=== PATIENT | female | born 1970 | race Caucasian/White ===

== ENCOUNTER → 2020-09-13 14:48 | Outpatient (BNVA) | payer OTHER, SELFPAY | PROVIDERS: PCP Pediatrics; Visit Provider Hospitalist ==

== ENCOUNTER 2020-11-10 13:55 | Outpatient (REF) | payer OTHER, SELFPAY ==
--- NOTE | 2020-11-10 15:02 | PFT_ITS ---
FLOWS: FEV1 117% of predicted at 3.35 L. FVC 107% of predicted at 3.82 L. FEV1 to FVC ratio of 0.88. No bronchodilator response. LUNG VOLUMES: Total lung capacity 109% of predicted at 5.54 L. Residual volume 97% of predicted at 1.71 L. Slow vital capacity 116% of predicted at 3.83 L. Expiratory reserve volume 129% of predicted at 1.38 L. Diffusion capacity is normal. IMPRESSION: No obstructive or restrictive ventilatory defect. No bronchodilator response. Essentially normal pulmonary function test. Saeid St MD AP/MODL / [id number]
== END 2020-11-10 13:56 | disposition home or self-care (01) ==
LOC: HO.RESP 13:55
PROVIDERS: PCP Pediatrics; Visit Provider Hospitalist
DX: R06.00 Dyspnea, unspecified (principal)
CPT/HCPCS: 94060; 94727; 94729

== ENCOUNTER → 2020-12-14 13:23 | Outpatient (BNVA) | payer OTHER, SELFPAY | PROVIDERS: PCP Pediatrics; Visit Provider Hospitalist ==

== ENCOUNTER 2025-02-20 10:32 | Outpatient (AMB) | payer OTHER, SELFPAY ==
--- NOTE | 2025-02-20 11:08 | MHC.OFFVIS ---
Vital Signs 02/20/25 11:09 Height 5 ft 3 in Weight 125 lb BMI 22.1 BP 110/72 Blood Pressure Location Lt brachial Position Sitting Respiration 16 Pulse 84 Pulse Source Pulse Oximeter Pulse Oximetry (%) 97 Oxygen Delivery Method Room Air Intake Visit Reasons: Low back pain Lead Military Analyst Required: No Allergies amoxicillin (From Augmentin) Allergy (Severe, Verified 02/20/25 11:11) Swelling clavulanic acid (From Augmentin) Allergy (Severe, Verified 02/20/25 11:11) Swelling Medication List - Last Reconciled 02/20/25 by Miri Chun LPN atorvastatin (Lipitor) 10 mg PO BEDTIME calcium carb, citrate, malate mg PO magnesium 250 mg PO DAILY multivitamin 1 tab PO DAILY omeprazole 40 mg PO DAILY turmeric mg PO vibegron (Gemtesa) 75 mg PO DAILY HPI HPI Low back pain: Details: History of Present Illness The patient is a 54-year-old female presenting with chronic low back pain. The onset of her symptoms was 25 years ago, and she reports gradual worsening over recent months. The pain is described as aching and stabbing, predominantly affecting the lower back with more intensity on the right. There is notable radiating discomfort down the right leg, exacerbated by sitting positions, especially at night. Her medical history reveals scoliosis and spinal arthritis with degenerative changes, further confirmed by past imaging studies. The patient has undergone cortisone injections, initially affording relief for eight months but now lasting only for five months. She is hesitant about pursuing nerve ablation despite recommendations. Her consistent exercise routine involves treadmill walking, despite it occasionally worsening her pain. She works as a lab coordinator and notes that the pain interrupts her sleep, necessitating additional hours of rest prior to work commitments. Morning symptoms are typically more severe, with amelioration seen as daily activities unfold. Pain Description - Onset: 25 years ago, progressively worsening - Quality: Aching and stabbing - Location: Lower back, right-sided emphasis - Radiation: Down the right leg when sitting - Severity: 12/07 - Exacerbating factors: Sitting, treadmill walking - Relieving factors: Initial relief from cortisone injections (now lessened) - Interference: Affects sleep, prolongs pre-work rest mandate Physical Exam - Appears afebrile. - Alert and oriented. - Mood and affect appropriate. - Follows and participates in conversation appropriately. - Respiratory effort is unlabored. - Axial loading reproduces pain. Results - Imaging: MRI report notes Modic endplate degenerative changes at L4-5 and L5-S1; images not available Pain Management - Affect: Pain negatively impacts sleep and daily functioning - Analgesia: Cortisone injections provide temporary relief; ongoing pain at 12/07 - Adverse Effects: None reported - Activities of Daily Living: Pain disrupts work as a lab coordinator and requires excessive sleep - Aberrant Drug Related Behaviors: None reported PFSH Medical History (Updated 02/24/25 @ 13:14 by Sarthak Smith MD) Hyperlipidemia Low back pain Dyspnea Social History (System 02/14/23 @ 15:44 by Selam Saucedo) Years Smoked: 2 years Physical Exam Vital Signs: Last Vital Signs Pulse 84 02/20/25 11:09 Resp 16 02/20/25 11:09 BP 110/72 02/20/25 11:09 Pulse Ox 97 02/20/25 11:09 Oxygen Delivery Method Room Air 02/20/25 11:09 BMI result Body Mass Index 22.1 Assessment & Plan Assessment & Plan (1) Vertebrogenic low back pain: Code(s): M54.51 - Vertebrogenic low back pain Category: Medical Plan Plan Patient was informed and verbally consented to the use of an ambient scribe for clinic note documentation during this visit. 1. Endplate Degenerative Changes At L4-5 And L5-S1 - Conduct review of existing MRI to confirm levels involved. - Basivertebral nerve ablation for vertebrogenic changes; tentatively proceed with L4, L5, S1 pending MRI review for L3 involvement. Discussion Notes I discussed the diagnostic findings correlating with the patient's vertebrogenic pain and acknowledged degenerative changes on MRI. We deliberated the potential for nerve ablation, outlining its purpose to reduce back pain by nerve interruption. Furthermore, theoretical complications, such as transient nerve irritation resulting in sciatic-like symptoms, were explained, emphasizing their typically transient nature. Future interventions may necessitate surgical procedures for optimal spine gearing depending on degeneration pace. Patient instructed to provide imaging disc for better strategic navigation toward ablative solutions. The procedural nuances, benefits, and life-resumption timelines post-ablation were reviewed to allay concerns. Patient Instructions - Maintain current exercises, monitor exacerbation. - Continue analgesics as needed; review cortisone necessity. - Consider provided information on nerve ablation and its permanency. - Obtain and submit imaging disc from [facility]. - Discuss questions and concerns in follow-up appointments. Coding Level of Care Code New Pt Level 4 (10674) Diagnoses Vertebrogenic low back pain M54.51
[2025-02-20 11:09] VITALS: BP 110/72; PULSE 84; RESP 16; O2SAT 97; BMI 22.1
--- OUTSIDE RECORDS SUMMARY | 2025-02-20 12:09 | XMS_ITS | Data Portability ---
Author Organization [place] - [facility], Allergy Address [address] [address] Care Team Providers Care Adjunct English Instructor Name Role Phone STEPHAN SO Primary Care Provider [phone] Assessment Encounter Date Assessment Date Assessment LastModified by Organization Details LastModified Time 10/13/2024 10/13/2024 Patient's patter n of symptoms are consistent with labyrinthitis back in February with resulting significant BPPV on the right. Hallpike testing today shows significant persistent, nonfatiguing geotropic nystagmus on the right which is possibly indicative of cupulolithiasis rather than standard BPPV. I suspect she also has some uncompensated vestibulopathy as well. I would like to refer her specifically to Jennifer Palm, PT at [facility] who is more versed in these more complex constellation of balance disturbance. I have provided a referral for this. Did review her audiometric testing which shows normal hearing bilaterally so this is unlikely to represent a degenerative inner ear phenomenon. Recommended avoidance of meclizine as to avoid side effects. [email or web address] Not available 10/13/2024 10:46:13 Plan of Treatment Reminders Order Date Submit Date Provider Last Modified By Organization Details Last Modified Time Details Appointments None record ed. Lab None record ed. Referral None record ed. Procedures None record ed. Surgeries None record ed. Imaging None record ed. Medication Orders None record ed. Patient TargetsNo targets recorded. Patient InstructionsNo instructions recorded. Reason for Referral None Reported. Results Created Date Observation Date Name Description Value Unit Range Abnormal Flag Note LastModifiedBy Organization Detail LastModifiedTime 10/14/19 25 09/30/2024 MR, angio gram, brain , w/wo contr ast No observ ation record ed. [email or web address] Not Available 09/28 10:44:36 10/14/19 25 audio gram No observ ation record ed. BARCODE Not Available 2024 11:22:23 Result Notes None recorded. Problems Name Problem SNOMED Code Status Onset Date Resolution Date Notes Provider Name and Address Organization Details Recorded Time Dizziness and giddiness 548332350 Active 2020 Dizziness and giddiness ; Note: Date Diagnosed : 07/08/2020 12:11 PM (R42) Not Available [facility] 4 03:25:07 Fractured nasal bones 647602541 Active 2020 Fracture of nasal bones, sequela; Note: Date Diagnosed : 07/08/2020 12:11 PM (S02.2XXS ) Not Available [facility] 4 03:25:07 Benign paroxysma l positiona l vertigo 508529571 Active 2024 DEANDRE VICK MD [address] [place] [address],[place] [address], [facility] [place], [address] , [facility] 5 10:40:52 Labyrinth itis of right inner ear 20361137893 09131 Active 2024 DEANDRE VICK MD [address] [place] [address],[place] [address], [place], [address] , [facility] 5 10:46:19 Problem Notes None recorded. Procedures Surgical History Date Name Laterality Status Provider Name and Address Organization Details Recorded Time 5 Air & Speech Audio with Tymps - 23750, 79479 & 70309 completed ENE MARTIN [address] [facility],[place] [address], [place], [address], [facility] - [facility] 10/13/2024 09:06:00 Cataract Surgery completed Erna Pineda [facility] 10/13/2024 09:08:39 Imaging Results None recorded. Procedure Notes None recorded. Medical Equipment None Reported. Allergies Allergen ID Allergen Name Allergen Category Reaction Reaction Severity Criticality Documentation Date Start Date Code Code System Note Provider Name and Address Organization Details Recorded Time 336757 Augmentin medicatio n Not available Not available Not available 10/13/20241988 41135 2 RxNorm Erna farris [place] - [facility] 09:07:01 Medications Name Sig Start Date Stop Date Status Note LastModified by Organization Details LastModified Time atorvastati n 10 mg tablet TAKE 1 TABLET BY MOUTH EVERY DAY active Not Available Not Available No t Available magnesium 250 mg tablet 250 mg every 24 hours by oral route. active Not Available Not Available No t Available ondansetron 4 mg disintegrat ing tablet DISSOLVE 1 TABLET BY MOUTH EVERY 8 HOURS NEEDED FOR NAUSEA/VO MITING 10/13 completed Not Available Not Available Not Available Daily Multi-Vitam in tablet 1 tablet every 24 hours by oral route. active Not Available Not Available No t Available Calcium 600 + D(3) 600 mg-125 unit tablet 1 tablet every 24 hours by oral route. active Not Available Not Available No t Available azelastine 137 mcg-flutica sone 50 mcg/spray nasal spray USE 1 SPRAY IN EACH NOSTRIL TWICE A DAY active Not Available Not Available No t Available mirabegron ER 50 mg tablet,exte nded release 24 hr TAKE 1 TABLET BY MOUTH EVERY DAY 10/10 completed Not Available Not Available Not Available omeprazole 20 mg delayed release,dis integrating tablet 20 mg every 24 hours by oral route. active Not Available Not Available No t Available Gemtesa 75 mg tablet 75 mg every 24 hours by oral route. 2024 active Not Available Not Available Not Avai lable Vitals None Recorded Social History Question Answer Notes LastModified by Organizat ion Details LastModified Time Tobacco Smoking Status Former Smoker Erna farris [place] - [facility] 10/13/2024 09:06:45 What Type Of Macroeconomics Professor Do You Use? None [email or web address] Information not available 10/13/2024 How Many Alcoholic Drinks Do You Consume Per Day On Average? 1 [email or web address] Information not available 10/13/2024 When Did You Quit Smoking? 16+yearssinc elastcigaret te [email or web address] Information not available 10/13/2024 Do You Have Any Pets? Yes [email or web address] Information not available 10/13/2024 Are You Passively Exposed To Smoke? No [email or web address] Information not available 10/13/2024 Are There Any Smokers In Your House? No [email or web address] Information not available 10/13/2024 Sex: Unknown Functional Status Question Answer Note LastModified by Organization Details LastModified Time How many times per week do you consume alcohol? 5-7 times per week [email or web address] Information not available 10/13/2024 Do you use any illicit or recreational drugs? No [email or web address] Information not available 10/13/2024 Do you or have you ever used any other forms of tobacco or nicotine? No [email or web address] Information not available 10/13/2024 What is your level of alcohol consumption? Moderate [email or web address] Information not available 10/13/2024 What type of noise exposure are you exposed to? noExposureToExcessiveNoise [email or web address] Infor mation not available 10/13/2024 Mental Status None recorded. Family History Relationship Description Onset Age of this Age Resolved Age Notes LastModified by Organization Details LastModified Time Mother Disorder of thyroid gland Not available 09:07:12 Mother Autoimmune disease [email or web address] Not available 09:07:12 Medical History Condition Response Allergies/Hayfever Y Heart Problems N Anxiety N Tonsil Infections N Emphysema N Migraines N Thyroid Problems N COPD N Depression N Developmental Delay N Glaucoma N Nasal or Sinus Problems N Anemia Y Immune System Disorder N Anesthesia Complications N Heart Attack ([place]) N Other Skin Condition Y Diabetes N Rhinitis Y Bleeding Disorder N Food Allergy N Hearing Loss N Arthritis Y Hyperlipidemia N Cancer N Stroke N Dementia N Nasal polyps N Asthma N Sleep Disorder N High Cholesterol Y GERD/Reflux Y Liver Disease N Headaches N Fibromyalgia N Hypertension N Speech Delay N Kidney Disease N Gynecological HistoryNo gynecological history recorded. Obstetrics History GPAL:G 0 P 0 0 0 0 Past Encounters Encounter ID Performer Location Encounter Start Date Encounter Closed Date Diagnosis/Indication Diagnosis SNOMED-CT Code Diagnosis ICD10 Code Diagnosis IMO Codes Diagnosis Note [id number] DEANDRE VICK MD [facility] [address] [address] 10/13/2024 08:49:04 10/13/2024 12:11:22 Dizziness and giddiness 745555573 R42 Right Ear:Normal hearing with excellent speech discrimina tion.Type A tympanogra m.Left Ear:Normal hearing with excellent speech discrimina tion.Type A tympanogra m. Benign par oxysmal positional vertigo 071583815 H81.11 67875201 Labyrinthi tis of right inner ear 2455658770 201283 H83.01 4016812 Health Concerns Section Related Observation LastModified by Organization Detai ls LastModified Time None Recorded Concern Status LastModified by Organization Details LastModified Time None Recorded Advance Directives Directive None Recorded Payers Insurance Date Sequence Insurance Name Policy Number Policy Meade Covered Member ID Meade Member ID Guarantor Name 04/03/2024 1 SARAH Dawna Valente Raquel [id number] Dawna García 10/13/2024 1 [facility] [id number] 1 Dawna García [id number] Dawna García Notes Date Note Type Note Provider Name and Address Organization Details Recorded Time 10/13/2024 text/html 54-year-old female who was seen by Dr. Woody back in 2020 after having a syncopal episode after getting out of a hot tub. Symptoms were thought to be related to orthostatic hypotension exacerbated by being in a hot tub.Patient comes in today with new symptoms. Back in February and March she had several weeks of significant recurring balance disturbance manifested by true vertigo and overall incapacitation due to significant dizziness. Patient symptoms were significantly positional in nature, worsened with laying flat or rolling over in bed. Symptoms subsided after March. In July it recurred, but it was much less pervasive, only lasting seconds at a time, again usually brought on by rolling in bed and lying flat. Patient was seen by vestibular therapist at [facility] who brought up the possibility of BPPV, but no treatment or exercises were provided. Patient currently is feeling off ambulatory even though she is not currently having any true positional vertigo. She reports difficulty walking in the low light situations. Patient did have MRI scan of the brain and internal auditory canals which showed no retrocochlear pathology but an incidental meningioma was noted. She has upcoming visit with neurosurgeon for further evaluation of this. DEANDRE VICK MD [address] [place] [address], [phone], [facility] - [facility] 10/13/2024 10:46:39 OBGyn Episode No OBEpisode recorded.
--- OUTSIDE RECORDS SUMMARY | 2025-02-20 12:09 | XMS_ITS | Encounter Summary ---
Author Organization [facility] Address [address] [place] [address] Care Team Providers Care Communications Tower Technician Name Role Phone Chrissie Heart MD Primary Care Provider [phone] Encounter Details Date Type Department Care Team (Late Contact Info) Description 03/19/2024 Nurse Triage Adult Medicine [address] [phone] Chrissie Heart MD [address] [place] [address] Social History Tobacco Use Types Packs/Day Years Used Date Smoking Tobacco: Former Smokeless Tobacco: Former Alcohol Use Standard Drinks/Week Comments Yes 1.7 (1 standard drink = 0.6 oz p ure alcohol) Comments Unknown Sex and Gender Information Value Date Recorded Sex Assigned at Not on file Legal Sex Female 7:32 PM EDT Gender Identity Not on file Sexual Orientation Not on file documented as of this encounter Plan of Treatment Upcoming Encounters Date Type Department Care Team (Late Contact Info) Description 09/11/2025 9:30 AM EDT Office Visit Adult Medicine [address] [phone] Chrissie Heart MD [address] [place] [address] documented as of this encounter Visit Diagnoses Not on filedocumented in this encounter Care Teams Communications Tower Technician Relationship Specialty Start Date End Date Chrissie Heart MD [address] [place] [phone] PCP - General Internal Medicine 03/24/24 documented as of this encounter
--- OUTSIDE RECORDS SUMMARY | 2025-02-20 12:09 | XMS_ITS | Clinical Summary ---
Author Organization Patient Business Ser [facility] Address [address] [place] [address] Care Team Providers Care Wheel And Axle Inspector Name Role Phone Chrissie Heart MD Primary Care Provider [phone] Allergies Active Allergy Reactions Criticality Noted Date Comments Amoxicillin-Pot Clavulanate Swelling High 08/23/19 08 Medications multivitamin tablet Take by mouth 1 (one) time each day. Active omeprazole (PriLOSEC) [address] capsule 4 Active magnesium 250 mg tablet 4 Active triamcinolone (KENALOG) 0.1 % cream APPLY THIN LAYER TWICE A DAY TO DERMATITIS ON BACK AND EARS FOR UP TO 2 WEEKS AT A TIME NEEDED 4 Active azelastine-flut icasone 137-50 mcg/spray spray,non-aeros ol USE 1 SPRAY IN EACH NOSTRILTWICE DAILY Active calcium carbonate-vitam in D3 1,000 mg-20 mcg (800 unit) tablet Take by mouth. Ac tive Myrbetriq 50 mg tablet extended release 24 hr 24 hr tablet Take 1 tablet (50 mg total) by mouth 1 (one) time each day. 5 Active meclizine (ANTIVERT) 25 mg tablet Take 1 tablet (25 mg total) by mouth 3 (three) times a day if needed for dizziness. May cause drowsiness do not drive or operate heavy machinery. 90 tablet 5 09/10/19 Active atorvastatin (LIPITOR) 10 mg tablet Take 1 Tablet by mouth daily for 360 days. 90 tablet 1 5 Active Active Problems Problem Noted Date Diagnosed Date Dyspnea 06/23/2020 Overview (03/25/2024): Last Assessment & Plan: The patient has been experiencing shortness of breath with exertion. She states that her symptoms have been present for the past 2 months. She also refers a chest tightness sensation in association with her shortness of breath. As such, will order an exercise stress test to evaluate for the presence of ischemic heart disease as a cause of her symptoms. We will also order an echocardiogram to evaluate for any underlying structural heart disease. I will reevaluate patient in our office after the tests are completed Syncope 06/22/2020 Overview (03/25/2024): Last Assessment & Plan: Patient had a single episode of syncope. Cardiac testing was essentially normal. Cardiac testing included a exercise stress test, echocardiogram, and a 30-day ambulatory court recording monitor. The patient has not had any further episodes of syncope. At this point, it is likely that her episode of syncope was vasovagal in nature. Nevertheless, I instructed the patient to continue to monitor her symptoms and to contact our office if she has any further episodes of syncope. If the patient does have any further episodes of syncope, then we will need to consider an implantable loop recorder for long-term monitoring of arrhythmias and a referral for a neurology evaluation to rule out a seizure disorder. Otherwise, the patient will be reevaluated next year Cervical stenosis of spine 05/10/2020 Abscess of right breast 04/12/2017 Overactive bladder 09/16/2012 Overview (03/25/2024): urologist Encounters Date Type Department Care Team Description 01/27/2025 Telephone Adult Medicine [address] [phone] Chrissie Heart MD from Last 3 Months Immunizations Immunization Administration Dates Next Due Influenza Quadravalent, MDCK , 0.5ml, with preservative (Flucelvax) 6mo and older 01/16/2018,02/14/2017 Influenza trivalent, 0.5mL, preservative free (Fluarix; FluLaval; Fluzone) ages 6mo and older (Afluria) 3 years and older 02/11/2024,01/19/2016,01/26/2015,2013,01/22/2013,01/17/2012,01/27/2009,1 Influenza, Unspecified 01/16/2020 OPV 07/29/1977 Td Tetanus diptheria (Tdvax) 7yo and older 12/16/2018 Tdap Tetanus diptheria acell ular pertussis (Boostrix; Adacel) 7yo and older 06/27/2022,03/10/2008 Zoster recombinant (Shingrix ) 19yo and older 10/23/2023,05/30/2023 Surgical History Surgery Date Site/Laterality Comments EYE SURGERY PROCEDURE: TN TRABECULOPLASTY BY LASER SURGERY; COMMENT: bilat eyes OTHER SURGICAL HISTORY PROCEDURE: HYSTEROSCOPY, DIAGNOSTIC OTHER SURGICAL HISTORY PROCEDURE: TN DILATION & CURETTAGE DX&/THER NONOBSTETRIC OTHER SURGICAL HISTORY 2017 Right PROCEDURE: HISTORY OTHER; COMMENT: rotator cuff surgery dr dale CATARACT EXTRACTION 03/12/2023 Right PROCEDURE: HISTORICAL CATARACT REMOVAL Medical History Medical History Date Comments Family history of thyroid disease 05/19/2010 DX:Family history of thyroid disease Overactive bladder 09/16/2012 DX:Overactive bladder; COMMENT: urologist Cervical stenosis of spine 05/10/2020 DX:Ce rvical stenosis of spine Allergic rhinitis Anemia Arthritis Cataract Eczema GERD (gastroesophageal reflux disease) Family History Medical History Relation Name Comments Hypertension Father Gopi COPD Father's Brother Erik Ovarian cancer Maternal Grandmother grandmother Hyperlipidemia Mother Barbara Immunodeficiency Mother Barbara Thyroid disease Mother Barbara Relation Name Status Comments Brother Alive healthy Daughter Alive healthy Father Gopi Alive htn, glaucoma Father's Brother Erik Maternal Grandfather (Age 90's) age Maternal Grandmother grandmother ca Mother Barbara Alive thyroid dz, lip id dz , pemphigus Paternal Grandfather suiccid e Paternal Grandmother Son Alive healthy Social History Tobacco Use Types Packs/Day Years Used Date Smoking Tobacco: Former Cigarettes 0.3 2 Smokeless Tobacco: Never Alcohol Use Standard Drinks/Week Comments Yes 7 (1 standard drink = 0.6 oz pur e alcohol) Housing Instability Answer Date Recorde d Are you worried that in the next 2 months you may not have stable housing? No 09/09/2024 Food Access & Nutrition Answer Date Rec orded Do you have access to a vari ety of food including fruits and vegetables? No 09/09/2024 Access to Healthcare Answer Date Record ed Within the last 3 months, ho w many times did you visit the emergency department for your medical care? 0 09/09/2024 Health Literacy Answer Date Recorded How often do you need to hav e someone help you when you read instructions, pamphlets, or other written material from your doctor or pharmacy? Never 09/09/2024 Caregiver: How often do you need to have someone help you when you read instructions, pamphlets, or other written material from your doctor or pharmacy? Not on file 09/09/2024 Financial Risk Answer Date Recorded How hard is it for you to pa y for the very basics like food, housing, medical care, and air conditioning / heating? Not very hard 09/09/2024 Transportation Answer Date Recorded Has the lack of transportati on kept you from meetings, work, or from getting things needed for daily living? No Has the lack of transportati on kept you from medical appointments or from getting medications? No 09/09/2024 Social Isolation Answer Date Recorded How often do you feel lonely or isolated from th ose around you? Never 09/09/2024 Food Risk Answer Date Recorded Within the past 12 months we worried whether our food would run out before we got money to buy more. Never true 09/09/2024 Within the past 12 months th e food we bought just didn't last and we didn't have money to get more. Never true 09/09/2024 Dependent Care Answer Date Recorded Do you need help finding or paying for care for your loved ones. For example, child and family counselor or elderly care for an older adult? No 09/09/2024 Education Answer Date Recorded Do you think completing more education or training, like finishing a GED, going to college, or learning a trade, would be helpful for you? No 09/09/2024 Employment and Income Answer Date Recor ded During the last four weeks, have you been actively looking for work? No 09/09/2024 Living Situation Answer Date Recorded What is your living situation? Unrecognized valu e 09/09/2024 Comments No Sex and Gender Information Value Date Recorded Sex Assigned at Not on file Legal Sex Female 7:32 PM EDT Gender Identity Not on file Sexual Orientation Not on file Obstetrics History Last Filed Vital Signs Vital Sign Reading Time Taken Comments Blood Pressure 126/82 09/09/2024 3:11 PM EDT Pulse 78 09/09/2024 3:11 PM EDT Temperature 36.4 C (97.5 F) 09/09/2024 3:11 PM EDT Respiratory Rate 14 09/09/2024 3:11 PM EDT Oxygen Saturation 98% 09/09/2024 3:11 PM EDT Inhaled Oxygen Concentration - - Weight 54.4 kg (120 lb) 09/09/2024 3:11 PM EDT Height 162.6 cm (5' 4 ) 09/09/2024 3:11 PM EDT Body Mass Index 20.6 09/09/2024 3:11 PM EDT Plan of Treatment Upcoming Encounters Date Type Department Care Team (Late st Contact Info) Description 09/11/2025 9:30 AM EDT Office Visit Adult Medicine [address] [phone] Chrissie Heart MD [address] [place] [address] Health Maintenance Due Date Last Done Comments IPV Vaccines (2 of 3 - 4-dose series) 08/26/1977 07/29/1977 Hepatitis B Vaccines (1 of 3 - 19+ 3-dose series) 08/16/1991 HIV Screening 01/25/2021 Hepatitis C Screening 01/25/2021 Pneumococcal Vaccine: 50+ Years (1 of 1 - PCV) 2022 COVID-19 Vaccine (4 - season) 2024 04/25/2021, 08/21/2020, 07/31/2020 Influenza Vaccine (#1) 2024 , 01/16/2020, 01/16/2018, Additional history exists Breast Cancer Screening 03/25/2025 03/25/20 24, 03/25/2024, 03/15/2017 Social Influencers of Health Screening 09/09/2025 09/09/2024 Cervical Cancer Screening: Pap Smear 02/14/2028 02/13/2023, 02/07/2023 Cholesterol Screening (Lipid Panel) 09/15/2029 09/15/2024, 10/26/2023, 10/26/2023, Additional history exists DTaP,Tdap,and Td Vaccines (4 - Td or Tdap) 06/27/2032 06/27/2022, 12/16/2018, 03/10/2008 Colorectal Cancer Screening: Colonoscopy 09/27/2033 09/28/2023, 09/28/2023 RSV Immunization Adult Patients (1 - 1-dose 75+ series) 08/16/2047 Zoster Vaccines Completed 10/23/2023, 05/30/2023 Depression Screening Completed 09/09/2024 HIB Vaccines Aged Out No longer eligi ble based on patient's age to complete this topic HPV Vaccines Aged Out No longer eligi ble based on patient's age to complete this topic Hepatitis A Vaccines Aged Out No long er eligible based on patient's age to complete this topic MMR Vaccines Aged Out No longer eligi ble based on patient's age to complete this topic Meningococcal ACWY Vaccine Aged Out N o longer eligible based on patient's age to complete this topic Meningococcal B Vaccine Aged Out No l onger eligible based on patient's age to complete this topic RSV Immunization Patients Under 20 months Aged Out No longer eligible based on patient's age to complete this topic Varicella Vaccines Aged Out No longer eligible based on patient's age to complete this topic Goals Goal Patient Goal Type Associated Problems Recent Progress Patient-Stated? Author PT LTGs General No Chapo Blount, PT Note: Pt will score WNL for FGA Pt will be independent with HEP Procedures Procedure Name Priority Date/Time Associated Diagnosis Comments LIPID PANEL WITH REFLEX TO DIRECT LDL Routine 09/15/2024 8:41 AM EDT PE (physical exam), annual MG MAMMO DIGITAL DIAGNOSTIC BILAT Routine 03/25/2024 4:39 PM EST HM COLONOSCOPY Routine 09/28/2023 PAP SMEAR Routine 02/13/2023 from Last 3 Months or Most Recently Relevant to Health Maintenance Results * Lipid panel with reflex to direct LDL (09/15/2024 8:41 AM EDT) Cholesterol 165 0 - 200 mg/dL LAB CHEMISTRY METHOD 09/15/2024 10:44 AM EDT [facility] Triglycerides 60 0 - 150 mg/dL LAB CHEMISTRY METHOD 09/15/2024 10:44 AM EDT [facility] HDL 74 >=40 mg/dL LAB CHEMISTRY METHOD 09/15/2024 10:44 AM EDT [facility] LDL Calculated 79 0 - 100 mg/dL LAB CHEMISTRY METHOD 09/15/2024 10:44 AM EDT [facility] VLDL Cholesterol Kel 12 mg/dL LAB CHEMISTRY METHOD 09/15/2024 10:44 AM EDT [facility] Non HDL Chol. (LDL+VLDL) 91 <145 mg/dL LAB CHEMISTRY METHOD 09/15/2024 10:44 AM EDT [facility] Chol/HDL Ratio 2.2 0.0 - 4.4 LAB CHEMISTRY METHOD 09/15/2024 10:44 AM EDT [facility] Blood Venous blood specimen / Unknown Venipuncture / Unknown 09/15/2024 8:41 AM EDT 09/15/2024 8:41 AM EDT Chrissie Heart MD LAB BLOOD ORDERABLES Final Resul t [facility] [address] [place] [address], [place] [phone] * MG Mammo Digital Diagnostic bilat (03/25/2024 4:39 PM EST) Anatomical Region Laterality Modality Breast Bilateral Mammography us Historical Provider MD RIOJAS BI PROCEDURES Final R esult * Hm Colonoscopy (09/28/2023) Colonoscopy No Interpretation , Abstracted Anatomical Region Laterality Modality Other Historical Provider HEALTH MAINTENANCE Final Result * Pap Smear (02/13/2023) Pap smear No Interpretation , Abstracted us Historical Provider HEALTH MAINTENANCE Final Result from Last 3 Months or Most Recently Relevant to Health Maintenance Insurance Care Teams Wheel And Axle Inspector Relationship Specialty Start Date End Date Chrissie Heart MD [address] [place] [phone] PCP - General Internal Medicine 03/24/24
--- OUTSIDE RECORDS SUMMARY | 2025-02-20 12:09 | XMS_ITS | Encounter Summary ---
Author Organization [facility] Address [address] [address] Phone Care Team Providers Care Continuous Improvement Coordinator Name Role Phone Elizabeth Cutler MD Primary Care Provid er Reason for Referral * Physical Therapy (Routine) - Closed Specialty Diagnoses / Procedures Referred By Carolyn dillard Referred To Contact Physical Therapy Diagnoses Encounter for rehabilitation Sreekanth Harris MD Phone: tel: fax: mailto:[email or web address] [address] [place] [address] Phone: tel: Referral ID Status Reason Start Date Expiration Date Visits Re quested Visits Authorized [id number] Closed 10/28/2016 10/27/2017 5 5 Encounter Details Date Type Department Care Team (Latest Contact Info) Description 09/17/2017 Transcribe Orders [facility] [address] [place] [address] Sreekanth Harris MD [address] [facility] [address] [place] [address] [email or web address] Encounter for rehabilitation (Primary Dx) Social History Tobacco Use Types Packs/Day Years Used Date Smoking Tobacco: Never Assessed Comments Unknown Sex and Gender Information Value Date Recorded Sex Assigned at Not on file Legal Sex Female 9:26 AM EDT Gender Identity Not on file Sexual Orientation Not on file documented as of this encounter Plan of Treatment Scheduled Referrals Name Type Priority Associated Diagnoses Orde r Schedule [facility] Outpatient Referral Routine Encounter for rehabilitation Ordered: 09/17/2017 documented as of this encounter Visit Diagnoses Diagnosis Encounter for rehabilitation- Primary documented in this encounter Care Teams Continuous Improvement Coordinator Relationship Specialty Start Date End Date Elizabeth Cutler MD [address] [address] PCP - General Internal Medicine 09/12/17 documented as of this encounter Additional Source Comments The information contained in this document represents components of the legal health record. It is not the complete legal health record.[facility]
--- OUTSIDE RECORDS SUMMARY | 2025-02-20 12:10 | XMS_ITS | Clinical Summary ---
Author Organization [facility] Address [address] [employer] [facility] [address] [place] [phone] Phone Care Team Providers Care Water Regulator And Valve Repairer Name Role Phone Elizabeth Cutler MD Primary Care Provid er Social History Tobacco Use Types Packs/Day Years Used Date Smoking Tobacco: Never Assessed Education Answer Date Recorded Are you interested in more education? Not on ceasar e 08/25/2022 Are you concerned about learning? Not on file 08/25/2022 No 08/25/2022 No 08/25/2022 Digital Access Answer Date Recorded No 09/23/2022 No 09/23/2022 No 09/23/2022 Reliable internet access at home? Not on file 09/23/2022 Device with a working camera? Not on file Comments Unknown Sex and Gender Information Value Date Recorded Sex Assigned at Not on file Legal Sex Female 9:26 AM EDT Gender Identity Not on file Sexual Orientation Not on file Plan of Treatment Health Maintenance Due Date Last Done Comments LIPID PANEL 1972 DEPRESSION SCREENING 1984 SMOKING Hx and SMOKELESS TOBACCO SCREENING 1985 HEPATITIS C SCREENING 1990 HIV ONE-TIME SCREENING (18-65 YEARS) 1990 PAP SMEAR 1993 MAMMOGRAM 2012 COLOGUARD 2017 COLONOSCOPY 2017 COLORECTAL CANCER SCREENING 2017 FIT TEST 2017 FOBT 2017 SIGMOIDOSCOPY 2017 VIRTUAL COLONOSCOPY 2017 PNEUMOCOCCAL VACCINES (50+ years) (1 of 1 - PCV) 2022 ZOSTER VACCINES (1 of 2) 2022 INFLUENZA VACCINE (#1) 2024 , 02/06/2019, 01/16/2018, Additional history exists COVID-19 VACCINE (2 - season) 2024 07/31/2020 Adult Td,Tdap Booster 12/16/2028 12/16/2018, 008 RSV VACCINE (1 - 1-dose 75+ series) 08/16/2047 HEPATITIS A VACCINES Aged Out No long er eligible based on patient's age to complete this topic HIB VACCINES Aged Out No longer eligi ble based on patient's age to complete this topic MENINGOCOCCAL VACCINES (ACWY) Aged Out No longer eligible based on patient's age to complete this topic MENINGOCOCCAL VACCINES (B) Aged Out N o longer eligible based on patient's age to complete this topic Medical Devices Not on file Insurance [address] [place], [place] [id number] [facility] HMO Care Teams Water Regulator And Valve Repairer Relationship Specialty Start Date End Date Elizabeth Cutler MD [address] [facility] [address] [place] [address] PCP - General Internal Medicine 09/12/17 Additional Source Comments The information contained in this document represents components of the legal health record. It is not the complete legal health record.[facility]
== END 2025-02-20 12:07 | disposition home or self-care (01) ==
LOC: HO.PMC 10:33
PROVIDERS: PCP Internal Medicine; Visit Provider Internal Medicine
DX: M54.51 Vertebrogenic low back pain (principal)
CPT/HCPCS: 99204